=== PATIENT | female | born 1955 | race Caucasian/White ===

== ENCOUNTER → 2016-08-09 | Outpatient (CLI) | payer MEDICARE, OTHER ==
[~2016-08-09] MED LIST: ACETAMINOPHEN PO; AQUAPHOR OINTM396 GM TOP; BACLOFEN10 MG PO; BENADRYL25 M1 PO; COUMADIN4 MG PO; COUMADIN5 MG PO; COUMADIN6 MG PO; CYMBALTA20 MG PO; DETROL LA2 MG PO; DIOVAN HCT 160-1 TAB PO; FLEXERIL PO; HYDROCODON-ACE1 EAC5 PO; HYDROCODONE-APA1 T54 PO; HYDROCORTISONE30 G7 EXT; LISINOPRIL10 MG PO; LOVENOX SUBQ; LOVENOX120 MG/0.8 INJ; LOVENOX150 MG/ML SQ; LUNESTA PO; LUNESTA2 M1 PO; MACROBID 100 M100 MG PO; MELATONIN3 MG PO; NAFTIN45 GM TOP; NIZORAL 2% CREA15 GM EXT; NORCO 10-325 TA1 TAB PO; NORCO 7.5-3251 EACH PO; PERCOCET10 PO; TOPROL XL 50 MG50 M1 PO; TRIAMCINOLONE AC1 GM EXT; TRIDESILON 0.0515 G2 EXT; VENLAFAXINE HC150 MG PO; WARFARIN SODIUM2 M1 PO; WARFARIN SODIUM4 M1 PO; WARFARIN SODIUM6 M1 PO; ZOLOFT100 MG PO
--- NOTE | ~2016-08-09 | XA30 ---
[facility] A Service [facility] RADIOLOGY TEXT RESULTS PATIENT: TERESA HANNON [facility] UNIT #: [id number] AGE: [address]: Wilber Welsh MD SEX: F ORDER DR: [id number] [facility]. [place], [place] [address] [id number] O MR#: [id number] Acc #: [id number] NAME: TERESA HANNON : 1955 SEX: F STUDY DATE/TIME: 08/09/2016 13:37 UNIT: [facility] ROOM: STUDY DESCRIPTION: XA Arthrocentesis Major Joint Attending Physician: Wilber Welsh M.D. Referring Physician: Wilber Welsh M.D. Ordering Physician: Wilber Welsh M.D. Primary Care Physician: No Primary Care Physician MEDICAL IMAGING REPORT This report is preliminary unless electronic signature is present EXAM Right hip arthrocentesis and injection. DATE OF EXAM 08/09/2016 HISTORY Right hip pain. PROCEDURE Informed consent was obtained. Skin site was selected with fluoroscopic guidance and marked, sterilely prepped and draped and locally anesthetized. Contrast was injected to confirm intraarticular needle tip position prior to injection of Depo-Medrol and Marcaine. The patient reported pre-procedure pain 4 of 10, postprocedure pain 0 of 10. IMPRESSION Successful right hip injection with Depo-Medrol and Marcaine, pre-procedure pain of 4/10, decreased to 0/10 postprocedure. Total fluoro time 0.5 minutes, single spot image obtained. Dictated by... Abdoul Gaines M.D. THIS IS AN ELECTRONICALLY VERIFIED REPORT Abdoul Gaines M.D. at 08/15/2016 5:05 PM LAUREN/arleen TD: 08/12/2016 21:16 JOB #: [id number] [facility] A Service [facility] RADIOLOGY TEXT RESULTS PATIENT: TERESA HANNON LOCATION: [facility] #: [id number] : 53 UNIT #: [id number] AGE: [address]: Wilber Welsh MD SEX: F ORDER DR: MEDICAL IMAGING REPORT COPY
== END | disposition home or self-care (01) ==
LOC: CIVR 13:17
DX: M16.11 Unilateral primary osteoarthritis, right hip (principal)
CPT/HCPCS: 77002; J1030; Q9966

== ENCOUNTER → 2016-11-09 | Outpatient (CLI) | payer MEDICARE, OTHER ==
--- NOTE | ~2016-11-09 | XA30 ---
[facility] A Service of [facility] RADIOLOGY TEXT RESULTS PATIENT: TERESA HANNON LOCATION: [facility] : 53 UNIT #: [id number] AGE: [address]: Wilber Welsh MD SEX: F ORDER DR: [id number] [facility] [address]. [place], [place] [address] [id number] O MR#: [id number] Acc #: [id number] NAME: TERESA HANNON : 1955 SEX: F STUDY DATE/TIME: 11/09/2016 10:13 UNIT: [facility] ROOM: STUDY DESCRIPTION: XA Arthrocentesis Major Joint Attending Physician: Wilber Welsh M.D. Referring Physician: Wilber Welsh M.D. Ordering Physician: Wilber Welsh M.D. Primary Care Physician: Kenton De Jesus D.O. MEDICAL IMAGING REPORT This report is preliminary unless electronic signature is present EXAM Right hip injection with Depo-Medrol and Marcaine CLINICAL HISTORY Right hip pain, osteoarthritis. PROCEDURE Informed consent was obtained from the patient. A skin site was selected with fluoroscopic guidance and marked, sterilely prepped, draped and locally anesthetized. A 22-gauge spinal needle was advanced into the joint and intraarticular needle tip position was confirmed with contrast injection followed by injection of 40 mg of Depo-Medrol and 2 mL of 0.5% Marcaine. There were no complications and the patient tolerated the procedure well. Patient reported pre-procedure pain level 5/10 and postprocedure pain level of 0/10. Single spot image obtained, total fluoroscopic time 0.2 minutes. IMPRESSION Successful fluoroscopically-guided right hip injection with Depo-Medrol and Marcaine, pre-procedure pain level 5/10 and postprocedure pain level 0/10. Dictated by... Abdoul Gaines M.D. THIS IS AN ELECTRONICALLY VERIFIED REPORT Abdoul Gaines M.D. at 11/11/2016 2:12 PM LAUREN/yamil TD: 11/11/2016 07:18 [facility] A Service of [facility] RADIOLOGY TEXT RESULTS PATIENT: TERESA HANNON LOCATION: [facility] #: [id number] : 53 UNIT #: [id number] AGE: [address]: Wilber Welsh MD SEX: F ORDER DR: JOB #: [id number] MEDICAL IMAGING REPORT Page 1 of 1 COPY
== END | disposition home or self-care (01) ==
LOC: CIVR 09:46
PROC: 3E0U33Z Introduction of Anti-inflammatory into Joints, Percutaneous Approach (ICD-10-PCS; principal; 2016-11-09)
PROC: 3E0U3BZ Introduction of Anesthetic Agent into Joints, Percutaneous Approach (ICD-10-PCS; 2016-11-09)
DX: M16.11 Unilateral primary osteoarthritis, right hip (principal); Z79.01 Long term (current) use of anticoagulants
CPT/HCPCS: 77002; J1030; Q9966

== ENCOUNTER → 2016-12-26 | Outpatient (CLI) | payer MEDICARE, OTHER ==
--- NOTE | ~2016-12-26 | CO ---
Unit #: [id number] #: [id number] Patient: TERESA HANNON [id number] [address] [address] [id number] O MR#: [id number] NAME: TERESA HANNON ROOM: Age: 61 Sex: F Admission Date: 12/26/2016 : 1955 Attending Physician: Wilber Welsh M.D. Primary Care Physician: Kenton De Jesus D.O. Consultation Date: 12/26/2016 CONSULTATION REPORT REASON FOR CONSULTATION Preoperative medical evaluation prior to right total hip arthroplasty scheduled by Dr. Welsh for 01/02/2017. HISTORY OF PRESENT ILLNESS The patient is a 61-year-old female, with history of atrial fibrillation on chronic Coumadin therapy, who presents to preprocedural screening for the reason as indicated above. She denies pain in a seated position today, but states that right hip pain increases with rising from a chair and with weightbearing activities. She denies upper chest, upper back, arm, neck, jaw, pain or pressure, does report some dyspnea on exertion which she attributes to deconditioning from inability to exercise. She is compliant with CPAP at night for obstructive sleep apnea. Denies lightheadedness, dizziness, presyncope, syncope. Denies palpitations. She denies history of myocardial infarction congestive heart failure. No CVA or TIA. Denies diabetes or kidney issues. She has been evaluated by Dr. Welsh and scheduled for the above-referenced procedure. PAST MEDICAL HISTORY 1. Osteoarthritis. 2. Prominent atrial fibrillation, now in controlled ventricular rate, on chronic Coumadin therapy with therapeutic INR of 2.6 today. 3. Anxiety. 4. History of overactive bladder. 5. Insomnia. 6. Hypertension. 7. Obstructive sleep apnea compliant with CPAP. 8. Legally blind in the right eye. 9. History of hepatitis B. 10. Rheumatoid arthritis. 11. Degenerative disk disease and obesity with BMI of 41.5. PAST SURGICAL HISTORY 1. Left hip replacement. 2. ORIF of left ankle fracture. 3. Excision of fatty tumor from the left thigh. 4. Left hip revision in 2011. 5. Right total knee arthroplasty on 07/25/2014. 6. Cholecystectomy on 11/30/2016. 7. Cardioversion in 2011. The patient denies a personal and family history of complications Unit #: [id number] #: [id number] Patient: LAURITA HANNONESE secondary to anesthesia. Although, she did have bleeding from cholecystectomy incision and was treated and released in the emergency department. ALLERGIES Denies latex allergy. Penicillins cause swelling and itching. Doxycycline, swelling and itching. Clindamycin, swelling and itching. Sulfamethoxazole, rash. Metronidazole, swelling and itching. Minocycline, swelling and itching. CURRENT MEDICATIONS Detrol LA 2 mg p.o. every morning, melatonin 3 mg p.o. at bedtime, Benadryl 25 mg p.o. at bedtime p.r.n. itching, Lunesta 3 mg p.o. at bedtime, hydrocodone and acetaminophen 10/325 mg tab one p.o. q.6 hours p.r.n. pain, Cymbalta 2 caps p.o. every morning, we will need to clarify dose. Warfarin sodium 6 mg p.o. on Monday and , warfarin sodium 4 mg p.o. on Monday, Monday, Monday, Monday, and Monday. Lisinopril 10 mg p.o. every morning, Naftin 45 g topically as needed for rash, hydrocortisone 1% cream 30 g tube as needed for rash, Aquaphor ointment topically at bedtime to feet. SOCIAL HISTORY Denies tobacco use, EtOH use, or illicit drug use. FAMILY HISTORY Coronary artery disease. REVIEW OF SYSTEMS A 10-point review of systems is conducted and otherwise negative except as indicated under history of present illness above. PHYSICAL EXAMINATION GENERAL: A 61-year-old female, awake, alert, in no acute distress. VITAL SIGNS: Temperature 98.1, heart rate 61, respiratory rate 16, blood pressure 130/69, oxygen saturation 97% on room air. HEENT: Atraumatic and normocephalic. Sclerae anicteric. No discharge from eyes, ears, or nares. LYMPHATICS: No preauricular, postauricular, tonsillar, submental, anterior or posterior cervical adenopathy. ENDOCRINE: No thyromegaly, thyroid nodules, or tenderness. RESPIRATORY: Clear to auscultation in all blanco bilaterally without wheezes, rhonchi, or rales. CARDIOVASCULAR: S1, S2. Regular rate and rhythm without murmur or rub. GI: Bowel sounds are positive x4. Soft, nontender, nondistended. EXTREMITIES: No edema, cyanosis, or clubbing. MUSCULOSKELETAL: Strength 5/5 in all extremities bilaterally to flexion and extension. NEUROLOGIC: Alert and oriented x3. Speech, clear. Cranial nerves II through XII are grossly intact. Follows directions for examination. DIAGNOSTIC STUDIES LABORATORY RESULTS: WBC 4.6, hemoglobin 12.6, hematocrit 38.5, and platelet count 174,000. Sodium 141, potassium 4.2, chloride 106, CO2 of 30, glucose 94, BUN 24, creatinine 0.6, calcium 9.1, AST 20, ALT 23, alkaline phos 34, bilirubin total 0.8, total protein 6.8, albumin 4.1. PT 28.7, INR 2.6. Urinalysis; leukocyte esterase 1+, nitrite negative, blood 2+, rbc's 10 to 25, wbc's 2 to 5, bacteria negative, squamous cells none Unit #: [id number] #: [id number] Patient: TERESA HANNON seen. Urine culture and sensitivity not indicated. MRSA nasal swab report pending at this time. Hemoglobin A1c 5.9, collected on 11/16/2016. IMAGING STUDIES: Two-view chest x-ray report pending at this time. CARDIOVASCULAR STUDIES: A 12-lead EKG, atrial fibrillation, controlled ventricular rate of 65 beats per minute. Abnormal ECG. Confirmed report pending at this time. IMPRESSION The patient is a 61-year-old female, who presents to preprocedural screening for, 1. Preoperative medical evaluation prior to right total hip arthroplasty scheduled by Dr. Welsh. The patient's Browning revised cardiac risk index is equal to 0.4% based on information available today. This represents the patient's risk of perioperative fatal or nonfatal myocardial infarction, cardiopulmonary arrest, arrhythmia and/or pulmonary edema. This has been discussed in detail with the patient. She wishes to proceed with surgery as scheduled at this time. 2. Atrial fibrillation with controlled ventricular rate on chronic Coumadin therapy with therapeutic INR today. The patient has been evaluated and given preoperative cardiac clearance by Peyton Sidhu A.P.R.N. On 11/25/2016. Per review of [facility] office note for cardiology followup evaluation, the patient's Revised Cardiac Risk Index has an estimated 1% which is considered low for major cardiac events surrounding surgery. This office note will be included with the patient's medical record. 3. Obstructive sleep apnea, compliant with CPAP. The patient has been evaluated by Dr. Charles and has been given an okay for right hip surgery from a pulmonary standpoint. The patient has been advised to bring CPAP for use postoperatively. 4. Anxiety. 5. History of overactive bladder. 6. Insomnia. 7. Hypertension. 8. Legally blind in the right eye. 9. History of hepatitis B. The patient is established with the archivist political history in [place]. She has a followup appointment with her PCP, Dr. De Jesus in [place] to follow up on recent lab work there. 10. Rheumatoid arthritis. 11. Degenerative disk disease. 12. Microscopic hematuria. The patient is asymptomatic at this time. Urine culture is not indicated based on results obtained during urinalysis today. 13. Obesity, BMI 41.5. Weight loss to recommend BMI is recommended. Thank you for allowing us to participate in care of this patient. We will gladly follow the patient for postop medical management pending order of Dr. Welsh. Dictated by... Kamila Sharp A.P.R.N. [facility] Unit #: [id number] #: [id number] Patient: TERESA HANNON TD: 12/27/2016 02:31 JOB #: [id number] CONSULTATION REPORT Page 1 of 1 X Kamila Sharp APRN X CONSULTATION REPORT
[2016-12-26 09:37] LABS: HEMATOCRIT 38.5 % (35.0-45.0); HEMOGLOBIN 12.6 gm/dL (12.0-16.0); MEAN CELL VOLUME 93.5 FL (83-96); MEAN CORPUSCULAR HEMOGLOBIN 30.5 PG (28-34); MEAN CORPUSCULAR HGB CONC 32.6 g/dL (30-36); MEAN PLATELET VOLUME 7.9 FL (6.5-11.5); RED BLOOD COUNT 4.12 X10e (3.90-5.30); RED CELL DISTRIBUTION WIDTH 13.1 % (11.0-15.5); WHITE BLOOD COUNT 4.6 X10e3 (4.0-10.5)
[2016-12-26 09:52] LABS: INR 2.6; PROTHROMBIN TIME (PATIENT) 28.7 SECONDS (10.0-11.7)
[2016-12-26 10:20] LABS: ALBUMIN SERUM 4.1 g/dL (3.5-5.0); BILIRUBIN,TOTAL 0.8 mg/dL (0.2-2.0); CALCIUM SERUM 9.1 mg/dL (8.4-10.2); CREATININE SERUM 0.6 mg/dL (0.6-1.4); GLOM FILT RATE Estimated 97.7 mL/min (>60); POTASSIUM 4.2 mmol/L (3.5-5.1); PROTEIN TOTAL SERUM 6.8 g/dL (6.0-8.3)
[2016-12-26 11:15] LABS: URINE APPEARANCE CLEAR; URINE BILIRUBIN NEG (NEG); URINE BLOOD 2+ (NEG); URINE COLOR YELLOW; URINE GLUCOSE NEG (NEG); URINE KETONE NEG (NEG); URINE LEUKOCYTE ESTERASE 1+ (NEG); URINE NITRATE NEG (NEG); URINE PROTEIN NEG (NEG); URINE SPECIFIC GRAVITY 1.019 (1.003-1.035); URINE UROBILINOGEN 0.2 MG/DL (NEG)
[2016-12-26 11:18] LABS: URINE BACTERIA AUWI NEG (NEGATIVE); URINE SQUAMOUS EPITHELIAL CELL NONE SEEN /[HPF]
[2016-12-26 11:28] LABS: CULTURE INDICATED? NO; URINE SOURCE CLEAN CATCH
== END | disposition home or self-care (01) ==
LOC: CAMB 08:56
PROVIDERS: Orthopaedic Surgery
DX: Z01.818 Encounter for other preprocedural examination (principal); M16.11 Unilateral primary osteoarthritis, right hip
CPT/HCPCS: 36415; 80053; 81003; 85027; 85610; 86850; 86900; 86901; 87070; 93005

== ENCOUNTER 2017-01-02 06:49 | Inpatient (IN) | payer MEDICARE, OTHER ==
[~2017-01-02] VITALS: Ht 182.9 cm; Wt 139.1 kg
--- NOTE | ~2017-01-02 | OR ---
Unit #: [id number] #: [id number] Patient: TERESA HANNON [id number] [facility]. [place], [place] [address] [id number] I MR#: [id number] NAME: TERESA HANNON ROOM: [facility] Date of Procedure: 01/02/2017 Admission Date: 01/02/2017 Surgeon: Wilber Welsh M.D. : 1955 Attending Physician: Wilber Welsh M.D. Primary Care Physician: Kenton De Jesus D.O. OPERATIVE REPORT PREOPERATIVE DIAGNOSIS Primary localized osteoarthritis of the right hip. POSTOPERATIVE DIAGNOSIS Primary localized osteoarthritis of the right hip. PROCEDURE PERFORMED Right total hip. ASSISTANTS Ruthie Rodriguez and Rashawn Chacon. ANESTHESIA General. ESTIMATED BLOOD LOSS 100 mL. DESCRIPTION OF PROCEDURE The patient was brought to the holding room, given 2 g of vancomycin. This will be continued postop, she was then brought back to the operating room, given a general anesthetic, placed in decubitus position with right side up. Right hip was prepped and draped in a sterile fashion. Modified Aufranc incision was mapped out and made and extended proximally and distally because of the size. The subcutaneous dissected away and fascia was split longitudinally. Posterior approach was carried out to the hip. After the hip was dislocated, we cut the neck at the appropriate level and removed the head fragment. We then retracted the femur anteriorly and debrided the labrum. We then reamed progressively with basket reamers up to a 61 and 62 mm [place] Gription cup was inserted in 40 degrees of abduction and 20 degrees of forward flexion. We positioned one screw through the cup with an excellent purchase. The trial of 36 mm neutral liner was positioned in the cup. The patient then had the leg internally rotated. The T-handle starter was used to find the canal used up to a size 7. Broaches were used up to a size 7 for the [place]isago stem and then a trial reduction was carried out with a standard neck and a +5 head. The hip was stable in all directions and leg lengths appeared to be just slightly short. Hip was dislocated. The real components were opened. The real liner was impacted into the cup. The real stem was impacted in 20 degrees of anteversion. We then did another trial reduction at this time and used the leg lengths were appropriate and stability was excellent. So, the real 8.5 ceramic head was opened and applied to Unit #: [id number] #: [id number] Patient: TERESA HANNON the trunnion. The hip was reduced. Stability was excellent. The hip was injected with ropivacaine mixture, irrigated with a dilute Betadine solution and bacitracin and closed using #1 running Stratafix suture in the fascia, and 0 and 2-0 Vicryl in the subcutaneous, and adrianna in the skin. Sterile dressing applied. Abduction pillow positioned and her general anesthetic was reversed. preschool assistant teacher, Ruthie Rodriguez, was present throughout the entire case. Dictated by... Saul Brunson/kash TD: 01/03/2017 01:18 JOB #: [id number] OPERATIVE REPORT Page 1 of 1 X Wilber Welsh MD PROCEDURE OPERATIVE NOTE
--- NOTE | ~2017-01-02 | DS ---
Unit #: [id number] #: [id number] Patient: TERESA DIAMOND [id number] [address] [address] [id number] I MR#: [id number] NAME: TERESA DIAMOND ROOM: 449 Age: 61 Sex: F Admission Date: 01/02/2017 : 1955 Discharge Date: 01/04/2017 Attending Physician: Wilber Welsh M.D. Primary Care Physician: Kenton De Jesus D.O. DISCHARGE SUMMARY ADMITTING DIAGNOSIS Right hip osteoarthritis. DISCHARGE DIAGNOSIS Right hip osteoarthritis. HOSPITAL COURSE On 01/02/2017, Ms. Diamond under a right total hip arthroplasty. She tolerated the procedure well. She was transported to the fourth floor where she underwent physical therapy, medical management and anticoagulation therapy. She is doing well and is ready to be discharged. DISPOSITION Stable, discharged home with home health. MEDICATIONS ON DISCHARGE Routine home meds in addition to Coumadin 2 mg p.o. daily and Percocet 10/325. FOLLOWUP INSTRUCTIONS 1. Ms. Diamond is going to be discharged home. 2. Patient is on Coumadin for DVT prophylaxis. PT and INR is to be drawn every Monday and , call the results in at [phone], attention Leno. 3. Skin adrianna are to be discontinued two weeks postop. Steri-Strips applied 1/4 inch apart. 4. White YRN hose to be worn during the day and can be removed in the evening. 5. Patient can shower in one week and can drive after seen by Dr. Welsh at the six week postop appointment. 6. Physical therapy is to be done for ambulation and transfers. Patient is weightbearing as tolerated. Patient will be on a walker for four weeks and a cane for an additional two weeks. 7. Followup appointment with Dr. Welsh is in six weeks. Please call our office for that appointment date and time. Dictated by... Ron LeonA.C. for Wilber Welsh M.D. JENNIFER/antelmo TD: 01/05/2017 10:17 Unit #: [id number] #: [id number] Patient: TERESA DIAMOND JOB #: [id number] DISCHARGE SUMMARY Page 1 of 1 X Ruthie Rodriguez X DISCHARGE SUMMARY
--- NOTE | ~2017-01-02 | EKG ---
PATIENT: TERESA HANNON UNIT #: [id number] Ventricular Rate: 78 BPM Atrial Rate: 61 BPM QRS Duration: 96 ms Q-T Interval: 386 ms QTC Calculation(Bezet): 440 ms Calculated R Plano: -5 degrees Calculated T Plano: -10 degrees Diagnosis Line: Atrial fibrillation Diagnosis Line: Abnormal ECG Diagnosis Line: When compared with ECG of 25-JUN-2014 10:23, Diagnosis Line: No significant change was found Diagnosis Line: Confirmed by PAULA OROZCO MD ([id number]) on 01/04/2017 Diagnosis Line: 7:33:10 PM INTERPRETING MD: ERNESTO TORRES
--- NOTE | ~2017-01-02 | CR145 ---
[facility] A Service of [facility] RADIOLOGY TEXT RESULTS PATIENT: TERESA HANNON LOCATION: [facility] 449-01 : [birth year] UNIT #: [id number] AGE: [address]: Wilber Welsh MD SEX: F ORDER DR: [id number] [facility] [address] [place], [place] [address] [id number] I MR#: [id number] Acc #: [id number] NAME: TERESA HANNON : 1955 SEX: F STUDY DATE/TIME: 01/02/2017 13:05 UNIT: [facility] ROOM: [facility] STUDY DESCRIPTION: CR Hip 1 View Rt Attending Physician: Wilber eWlsh M.D. Ordering Physician: Wilber Welsh M.D. Primary Care Physician: Kenton De Jesus D.O. MEDICAL IMAGING REPORT This report is preliminary unless electronic signature is present EXAM Right hip HISTORY Status post right hip replacement due to right hip pain FINDINGS An AP view of the right hip was obtained. There is a total hip replacement present. There is some air in the soft tissues from recent surgery. There is no fracture or dislocation suggested. IMPRESSION The patient is status post total hip replacement. Dictated by... Phan Graham M.D. THIS IS AN ELECTRONICALLY VERIFIED REPORT Phan Graham M.D. at 01/03/2017 6:09 AM FEL/to TD: 01/02/2017 23:06 JOB #: [id number] MEDICAL IMAGING REPORT Page 1 of 1 COPY
--- NOTE | ~2017-01-02 | BMI ---
[facility] Nutrition Therapy DATE: 01/03/17 Patient: TERESA HANNON Physician: INGE Address: [address] [place] [address] ROAD Room/Bed: [address] [place] [address], Zip: [place] [address] Admit Date: 01/02/17 Date of : [birth year] Height: 6 0 Weight: 306 139.1 HIGH BMI NOTE: DX: 61 y/o female admitted with OA right hip ANTHROPOMETRICS: Ht: 72", Wt: 139 kg, BMI: 41 (stage III obese) DIET: Regular INTERVENTION: Restricted diet, meds/fluids per MD RECOMMENDATIONS: Consider changing diet to healthy heart to promote a gradual weight loss towards a healthy BMI range. Respectfully, Ale Song RD, LD Food and Nutritional Services [facility] cc: client file
[~2017-01-02 06:49] MED LIST changes: -LOVENOX SUBQ; -PERCOCET10 PO; -WARFARIN SODIUM2 M1 PO
[2017-01-02 07:38] LABS: INR 1.2
[2017-01-02 07:39] LABS: PROTHROMBIN TIME (PATIENT) 12.7 SECONDS (10.0-11.7)
[2017-01-02] MEDS ORDERED: LOVENOX SUBQ (07:42)
[2017-01-03 03:37] LABS: HEMATOCRIT 30.2 % (35.0-45.0); HEMOGLOBIN 10.2 gm/dL (12.0-16.0)
[2017-01-03 03:53] LABS: INR 1.4; PROTHROMBIN TIME (PATIENT) 15.7 SECONDS (10.0-11.7)
[2017-01-03 04:12] LABS: CALCIUM SERUM 8.3 mg/dL (8.4-10.2); CREATININE SERUM 0.8 mg/dL (0.6-1.4); GLOM FILT RATE Estimated 79.1 mL/min (>60); MAGNESIUM 1.6 mg/dL (1.6-3.0)
[2017-01-04 03:32] LABS: HEMATOCRIT 31.3 % (35.0-45.0); HEMOGLOBIN 10.3 gm/dL (12.0-16.0)
[2017-01-04 03:44] LABS: INR 2.3
[2017-01-04 03:51] LABS: PROTHROMBIN TIME (PATIENT) 25.2 SECONDS (10.0-11.7)
[2017-01-04 04:00] LABS: BUN/CREATININE RATIO 21.66; CALCIUM SERUM 8.7 mg/dL (8.4-10.2); CREATININE SERUM 0.6 mg/dL (0.6-1.4); GLOM FILT RATE Estimated 97.7 mL/min (>60); MAGNESIUM 2.1 mg/dL (1.6-3.0); POTASSIUM 4.2 mmol/L (3.5-5.1)
[2017-01-04] MEDS ORDERED: WARFARIN SODIUM2 M1 PO (15:48)
[2017-01-04] MEDS ORDERED: PERCOCET10 PO (15:49)
== END 2017-01-04 18:05 | disposition home health service (06) | DRG 470 ==
LOC: CSUR 06:49 → C4B 09:51 → CPACUOF 09:51 → CSUR 09:59 → CPACUOF 09:59 → C4B 17:57
PROVIDERS: Nurse Practitioner; Orthopaedic Surgery
PROC: 0SR90JZ Replacement of Right Hip Joint with Synthetic Substitute, Open Approach (ICD-10-PCS; principal; 2017-01-02 09:00)
DX: M16.11 Unilateral primary osteoarthritis, right hip (principal); Z68.41 Body mass index [BMI] 40.0-44.9, adult; E83.42 Hypomagnesemia; M06.9 Rheumatoid arthritis, unspecified; I10 Essential (primary) hypertension; D62 Acute posthemorrhagic anemia; R11.0 Nausea; R31.29 Other microscopic hematuria; E66.9 Obesity, unspecified; G47.33 Obstructive sleep apnea (adult) (pediatric); Z86.19 Personal history of other infectious and parasitic diseases; H54.41 Blindness, right eye, normal vision left eye; F41.9 Anxiety disorder, unspecified; N39.3 Stress incontinence (female) (male); I48.2 Chronic atrial fibrillation; Z79.01 Long term (current) use of anticoagulants; G47.00 Insomnia, unspecified; Z96.642 Presence of left artificial hip joint; Z96.651 Presence of right artificial knee joint; Z90.49 Acquired absence of other specified parts of digestive tract; Z88.0 Allergy status to penicillin; Z88.1 Allergy status to other antibiotic agents; Z88.2 Allergy status to sulfonamides; Z88.8 Allergy status to other drugs, medicaments and biological substances; Z87.01 Personal history of pneumonia (recurrent)
CPT/HCPCS: 73501; 80048; 83735; 85014; 85018; 85610; 93005; 94010; 94760; 97110; 97116; 97162; 97166; 97530; C1776; G8978-GP; G8979-GP; G8987-GO; G8988-GO; G8989-GO; J0171; J0330; J0735; J1100; J1170; J1650; J1885; J2250; J2405; J2795; J3010; J3370; J3475